=== PATIENT | female | born 1970 | race Caucasian/White ===

== ENCOUNTER 2020-08-01 06:21 | Inpatient (IN) ==
[~2020-08-01 06:21] MED LIST: ANCEF VIAL 1 GRAM IVP ONE; D5 1/2 NS 1000 ML 1,000 ML IV SCH
[2020-08-01] MEDS ORDERED: ANCEF 1 GRAM IV PREMIX* 1 G/50 ML BAG IV ONE (06:34)
[2020-08-01] MEDS ORDERED: BETADINE SOLN ONE (06:46)
[2020-08-01] MEDS ORDERED: ProvayBLUE 0.5% ONE (06:46)
[2020-08-01] MEDS: DUONEB 0.5 MG/3 MG (3 mL) NEB ONE ×2 (06:50→07:00)
[2020-08-01 06:56] VITALS: BMI 24.4
[2020-08-01] MEDS ORDERED: FENTANYL INJ 250 mcg ONE (07:13)
[2020-08-01] MEDS ORDERED: ZEMURON 50 MG VIAL ONE (07:13)
[2020-08-01] MEDS ORDERED: BRIDION ONE (07:13)
[2020-08-01] MEDS ORDERED: OFIRMEV IV 1000 MG VIAL 1,000 MG/100 ML VIAL IV ONE (07:48)
[2020-08-01] MEDS ORDERED: ZOFRAN INJ 4 MG VIAL ONE (09:17)
[2020-08-01] MEDS ORDERED: DILAUDID INJ ONE (09:17)
[2020-08-01] MEDS: DILAUDID INJ IVP PRN ×4 (09:18→09:39)
[2020-08-01] MEDS ORDERED: TORADOL 30 MG VIAL IVP PRN (09:49)
[2020-08-01] MEDS ORDERED: ZOFRAN INJ 4 MG VIAL IVP PRN ×2 (09:49→10:13)
[2020-08-01] MEDS ORDERED: REGLAN INJ 10 MG VIAL IVP PRN (10:13)
[2020-08-01] MEDS ORDERED: PHENERGAN INJ 25 MG IM PRN (10:13)
[2020-08-01] MEDS: D5 1/2 NS 1000 ML 1,000 ML IV SCH ×2 (10:13→18:20)
[2020-08-01] MEDS ORDERED: BENADRYL INJ 50 MG VIAL IVP PRN (10:13)
[2020-08-01] MEDS ORDERED: MORPHINE SULFATE PCA 30 MG ONE (10:37)
[2020-08-01] MEDS: MORPHINE SULFATE PCA 30 MG IVP PRN ×2 (10:45→20:13)
[2020-08-01] MEDS: BENADRYL INJ 50 MG VIAL IVP PRN ×2 (12:39→21:45)
[2020-08-01] MEDS: SEROquel TAB 25 mg PO SCH (21:45)
[2020-08-02 05:09] LABS: BASOPHILS % (AUTO) 0.3 % (0.2-1.0); EOSINOPHILS % (AUTO) 0.3 % (0.9-2.9); HEMATOCRIT 28.5 % (36.0-47.0); HEMOGLOBIN 9.2 g/dL (12.0-16.0); LYMPHOCYTES # (AUTO) 1.9 X10^3/uL (1.3-2.9); LYMPHOCYTES % (AUTO) 32.1 % (21.0-51.0); MEAN CORPUSCULAR HEMOGLOBIN 26.6 pg (27.0-34.0); MEAN CORPUSCULAR HGB CONC 32.2 g/dL (33.0-35.0); MEAN CORPUSCULAR VOLUME 82.4 fL (80.0-100.0); MEAN PLATELET VOLUME 8.1 fL (7.4-11.0); MONOCYTES # (AUTO) 0.6 x10^3/uL (0.3-0.8); MONOCYTES % (AUTO) 9.9 % (0.0-13.0); NEUTROPHILS # (AUTO) 3.4 x10^3/uL (2.2-4.8); NEUTROPHILS % (AUTO) 57.4 % (42.0-75.0); PLATELET COUNT 243 X10^3/uL (150.0-450.0); RED BLOOD COUNT 3.46 X10^6/uL (3.5-5.4); RED CELL DISTRIBUTION WIDTH 14.4 % (11.6-16.5)
[2020-08-02 05:10] LABS: BLOOD UREA NITROGEN 3 mg/dL (7-18); CALCIUM 7.7 mg/dL (8.5-10.1); CARBON DIOXIDE 30.4 mmol/L (21-32); CHLORIDE 106 mmol/L (98-107); CREATININE 0.69 mg/dL (0.55-1.02); SODIUM 142 mmol/L (136-145); eGFR NON BLACK RACES > 60 (>60)
[2020-08-02] MEDS ORDERED: MOTRIN TAB 800 MG PO PRN (07:18)
[2020-08-02] MEDS: PERCOCET TAB 5/325 MG PO PRN ×3 (08:06→19:59)
[2020-08-02] MEDS: PROTONIX TAB 40 MG PO SCH (08:07)
[2020-08-02] MEDS: COLACE CAP 100 MG PO SCH ×2 (08:07→22:45)
[2020-08-02] MEDS: LEXAPRO PO SCH (08:15)
[2020-08-02] MEDS: BACTROBAN TOPICAL OINT TOP SCH ×2 (15:00→22:45)
[2020-08-02] MEDS: D5 1/2 NS 1000 ML 1,000 ML IV SCH (17:20)
[2020-08-02] MEDS: SEROquel TAB 25 mg PO SCH (22:45)
[2020-08-03] MEDS: PERCOCET TAB 5/325 MG PO PRN (05:05)
[2020-08-03] MEDS: BACTROBAN TOPICAL OINT TOP SCH (05:54)
[2020-08-03] MEDS ORDERED: SUPRANE ONE (06:21)
[2020-08-03] MEDS ORDERED: DECADRON INJ ONE (06:21)
[2020-08-03] MEDS ORDERED: ZOFRAN INJ 4 MG VIAL ONE (06:21)
[2020-08-03] MEDS ORDERED: EPHEDRINE SULFATE INJ ONE (06:21)
[2020-08-03] MEDS ORDERED: XYLOCAINE 2 % (PLAIN) ONE (06:21)
[2020-08-03] MEDS ORDERED: VERSED ONE (06:21)
[2020-08-03] MEDS ORDERED: DIPRIVAN VIAL ONE (06:21)
[2020-08-03] MEDS ORDERED: TORADOL 30 MG VIAL ONE (06:21)
[2020-08-03] MEDS: PROTONIX TAB 40 MG PO SCH (08:33)
[2020-08-03] MEDS: LEXAPRO PO SCH (08:33)
[2020-08-03] MEDS: COLACE CAP 100 MG PO SCH (08:33)
[2020-08-03 08:37] VITALS: BP 111/55
== END 2020-08-03 10:00 | disposition home or self-care (01) | DRG 743 ==
LOC: OBS 06:21
PROVIDERS: ADMIT Specialist; ATTEND Specialist
DX: N92.5 Other specified irregular menstruation; D25.2 Subserosal leiomyoma of uterus; N94.4 Primary dysmenorrhea; R10.2 Pelvic and perineal pain